=== PATIENT | female | born 1965 | race American Indian/Alaskan Native ===

== ENCOUNTER 2018-02-20 08:38 | Outpatient (CLI) | payer BC ==
--- NOTE | 2018-02-20 11:27 | Mammography Report ---
Screening mammogram: Routine views are obtained and compared to prior exam in January 2012. In the upper outer left breast there is an asymmetry containing a biopsy marker. It is generally smaller in size on the current examination. There is a minimally lobulated nodule in the right axilla which has remained stable. The overall breast pattern otherwise is generally fatty replaced, symmetric, and unremarkable. CAD used. Impression: Stable exam. Recommendation: Annual mammogram followup. BI-RADS CATEGORY: 1 = Negative ACR BI-RADS MAMMOGRAPHIC CODES: 0 = Needs additional imaging evaluation; 1 = Negative; 2 = Benign; 3 = Probably benign; 4 = Suspicious; 5 = Malignant; 6 = Known biopsy-proven malignancy COMMENT: 1. Dense breast tissue, i.e., adenosis, fibrocystic changes, etc., may obscure an underlying neoplasm. 2. Approximately 10% of cancers are not detected with mammography. 3. A negative mammography report should not delay biopsy if a clinically suspicious mass is present.
== END 2018-02-20 08:39 | disposition home or self-care (01) ==
LOC: MAMMO 08:38
PROVIDERS: ATTEND Internal Medicine
DX: Z12.31 Encounter for screening mammogram for malignant neoplasm of breast (principal); I10 Essential (primary) hypertension; J44.9 Chronic obstructive pulmonary disease, unspecified; G47.30 Sleep apnea, unspecified; K21.9 Gastro-esophageal reflux disease without esophagitis; E03.9 Hypothyroidism, unspecified; Z98.890 Other specified postprocedural states; Z82.49 Family history of ischemic heart disease and other diseases of the circulatory system
CPT/HCPCS: 77067

== ENCOUNTER 2018-10-23 13:04 | Outpatient (CLI) | payer BC ==
[2018-10-23 13:50] LABS: Hematocrit 39.2 % (30.3-42.9); Hemoglobin 13.1 gm/dl (10.1-14.3); Mean Corpuscular HGB Conc 33 % (30-34); Mean Corpuscular Volume 90 fl (79-97); Platelet Count 248 K/mm3 (140-440); Red Blood Count 4.38 M/mm3 (3.65-5.03); Red Cell Distribution Width 13.6 % (13.2-15.2)
[2018-10-23 14:23] LABS: Alanine Aminotransferase 15 units/L (7-56); Albumin 4.3 g/dL (3.9-5); BUN/Creatinine Ratio 22; Blood Urea Nitrogen 11 mg/dL (7-17); Calcium 9.9 mg/dL (8.4-10.2); Chol/HDL Ratio 2.42 %; HDL Cholesterol 96 mg/dL (40-59); Hemolysis Index 4; LDL Cholesterol,Direct 140 mg/dL (50-130)
== END 2018-10-23 13:05 | disposition home or self-care (01) ==
LOC: LAB 13:04
PROVIDERS: ATTEND Internal Medicine
DX: E03.9 Hypothyroidism, unspecified (principal); I10 Essential (primary) hypertension; E66.01 Morbid (severe) obesity due to excess calories; K21.9 Gastro-esophageal reflux disease without esophagitis; J44.9 Chronic obstructive pulmonary disease, unspecified; Z90.710 Acquired absence of both cervix and uterus; Z90.49 Acquired absence of other specified parts of digestive tract
CPT/HCPCS: 36415; 80053; 80061; 82306; 82607; 84425; 84443; 85027

== ENCOUNTER 2019-04-26 10:38 | Outpatient (CLI) | payer BC ==
[2019-04-26 11:10] LABS: Hematocrit 36.7 % (30.3-42.9); Hemoglobin 12.2 gm/dl (10.1-14.3); Mean Corpuscular HGB Conc 33 % (30-34); Mean Corpuscular Volume 89 fl (79-97); Platelet Count 218 K/mm3 (140-440); Red Blood Count 4.12 M/mm3 (3.65-5.03); Red Cell Distribution Width 13.5 % (13.2-15.2)
[2019-04-26 11:27] LABS: Alanine Aminotransferase 12 units/L (7-56); Albumin 4.2 g/dL (3.9-5); BUN/Creatinine Ratio 23; Blood Urea Nitrogen 14 mg/dL (7-17); Calcium 9.5 mg/dL (8.4-10.2); HDL Cholesterol 100 mg/dL (40-59); Hemolysis Index 2; LDL Cholesterol,Direct 146 mg/dL (50-130)
[2019-04-26 11:48] LABS: Free T4 (Free Thyroxine) 1.32 ng/dL (0.76-1.46)
== END 2019-04-26 10:39 | disposition home or self-care (01) ==
LOC: LAB 10:38
PROVIDERS: ATTEND Internal Medicine
DX: E03.9 Hypothyroidism, unspecified (principal); I10 Essential (primary) hypertension; J44.9 Chronic obstructive pulmonary disease, unspecified; E66.01 Morbid (severe) obesity due to excess calories; K21.9 Gastro-esophageal reflux disease without esophagitis; Z90.49 Acquired absence of other specified parts of digestive tract; Z90.710 Acquired absence of both cervix and uterus; Z86.2 Personal history of diseases of the blood and blood-forming organs and certain disorders involving the immune mechanism
CPT/HCPCS: 36415; 80053; 80061; 82607; 82652; 82747; 83036; 84439; 84443; 85027

== ENCOUNTER 2019-07-18 14:05 | Outpatient (CLI) | payer BC ==
--- NOTE | 2019-07-19 11:30 | Mammography Report ---
DIGITAL SCREENING MAMMOGRAM WITH CAD, 07/18/2019 INDICATION: Routine screening mammography. TECHNIQUE: Digital bilateral 2D mammography was obtained in the craniocaudal and mediolateral obliq ue projections. This examination was interpreted with the benefit of Computer-Aided Detection analysi s. COMPARISON: 02/20/2018 and 01/25/2012 FINDINGS: Breast Density: The breasts are heterogeneously dense, which may obscure small masses. A right asymmetry on the MLO view requires additional imaging. No architectural distortion or suspici ous calcifications of the right breast. There is no evidence of new mass, suspicious calcifications o r architectural distortion in the left breast. Stable oval partially circumscribed left outer mixed d ensity mass with a biopsy clip. It has a fatty component. IMPRESSION: Right asymmetry requiring additional imaging. Recommend recall for right lateral and spot magnification MLO views and right breast ultrasound if needed. Follow up recommendation: Routine yearly Category 0: Incomplete. Needs additional imaging evaluation and/or prior mammograms for comparison. A "normal" or negative report should not discourage follow up or biopsy of a clinically significant f inding. A written summary of these findings will be mailed to the patient. The patient will be entered into a mammography reporting system which will generate a reminder letter for the patient's next appointmen t at the appropriate interval. The [employer] recommends yearly mammograms starting at age 40 and continuing as l karlene as a woman is in good health. Breast MRI is recommended for women with an approximate 20-25% or greater lifetime risk of breast cancer, including women with a strong family history of breast or ova leticia cancer or who have been treated for Hodgkin's disease. Signer Name: Mirza Geronimo MD Signed: 07/19/2019 11:25 AM Workstation Name: [id number]
== END 2019-07-18 14:06 | disposition home or self-care (01) ==
LOC: MAMMO 14:05
PROVIDERS: ATTEND Internal Medicine
DX: Z12.31 Encounter for screening mammogram for malignant neoplasm of breast (principal); I10 Essential (primary) hypertension; J44.9 Chronic obstructive pulmonary disease, unspecified; K21.9 Gastro-esophageal reflux disease without esophagitis; Z90.49 Acquired absence of other specified parts of digestive tract; Z98.51 Tubal ligation status; E03.9 Hypothyroidism, unspecified; Z98.890 Other specified postprocedural states; E89.0 Postprocedural hypothyroidism; Z85.850 Personal history of malignant neoplasm of thyroid
CPT/HCPCS: 77067

== ENCOUNTER 2020-04-02 11:42 | Outpatient (CLI) | payer BC ==
--- NOTE | 2020-04-02 15:05 | XRay Report ---
CERVICAL SPINE 3 VIEWS INDICATION: LOWER BACK PAIN. COMPARISON: None. IMPRESSION: There is reversal of the normal cervical lordosis. Mild to moderate degenerative disc d isease is identified at C4-5, C5-5-6 and C6-7. The facet joints are unremarkable. No acute osseous o r soft tissue abnormality. THORACIC SPINE 2 VIEWS INDICATION: LOWER BACK PAIN. COMPARISON: None. IMPRESSION: Normal alignment. Mild multilevel degenerative disc disease is noted. No acute osseous or soft tissue abnormality. LUMBAR SPINE 3 VIEWS INDICATION: LOWER BACK PAIN. COMPARISON: None. IMPRESSION: There is 3 mm anterolisthesis of L4 with respect to L5 which appears to be secondary to degenerative facet arthropathy. The remaining lumbar vertebra are normal alignment. Mild disc space narrowing at L4-5 and L5-S1. Moderate facet arthropathy at L3-4, L4-5 and L5-S1. The sacrum and SI emy ints are unremarkable. No acute osseous or soft tissue abnormality. Signer Name: Denny Marvin Jr, MD Signed: 04/02/2020 3:01 PM Workstation Name: [id number]
== END 2020-04-02 11:43 | disposition home or self-care (01) ==
LOC: XRAY 11:42
PROVIDERS: ATTEND Chiropractor
DX: M50.321 Other cervical disc degeneration at C4-C5 level (principal)
CPT/HCPCS: 72040; 72070; 72100

== ENCOUNTER 2020-06-25 08:20 | Outpatient (CLI) | payer BC ==
[2020-06-25 08:42] LABS: Hematocrit 34.8 % (30.3-42.9); Hemoglobin 11.6 gm/dl (10.1-14.3); Mean Corpuscular HGB Conc 33 % (30-34); Mean Corpuscular Volume 91 fl (79-97); Platelet Count 222 K/mm3 (140-440); Red Blood Count 3.85 M/mm3 (3.65-5.03); Red Cell Distribution Width 14.1 % (13.2-15.2)
[2020-06-25 09:16] LABS: Alanine Aminotransferase 11 units/L (7-56); Albumin 4.1 g/dL (3.9-5); Blood Urea Nitrogen 16 mg/dL (7-17); Calcium 9.6 mg/dL (8.4-10.2); Chol/HDL Ratio 2.46 %; HDL Cholesterol 93 mg/dL (40-59); Hemolysis Index 2; LDL Cholesterol,Direct 138 mg/dL (50-130)
[2020-06-25 09:17] LABS: BUN/Creatinine Ratio 27
[2020-06-28 14:09] LABS: Vitamin D, 25-OH, D2 <4 ng/mL
== END 2020-06-25 08:21 | disposition home or self-care (01) ==
LOC: LAB 08:20
PROVIDERS: ATTEND Internal Medicine
DX: Z00.00 Encounter for general adult medical examination without abnormal findings (principal)
CPT/HCPCS: 36415; 80053; 80061; 82306; 83036; 84443; 85027

== ENCOUNTER 2020-08-22 12:50 | Outpatient (CLI) | payer BC ==
--- NOTE | 2020-08-22 13:36 | Mammography Report ---
DIGITAL DIAGNOSTIC MAMMOGRAM WITH CAD CONVENTIONAL, 08/22/2020 CLINICAL INFORMATION / INDICATION: ABN MAMMO TECHNIQUE: Digital bilateral mammographic imaging was performed. This examination was interpreted with the benefit of Computer-aided Detection analysis. COMPARISON: 01/25/2012 through 07/18/2019. FINDINGS: Breast Density: There are scattered areas of fibroglandular density. No dominant mass, suspicious calcifications or architectural distortion in either breast. Benign-appearing nodularity bilaterally, more prominent on the left than the right, is again identifi ed. A biopsy clip in the left upper outer quadrant is again noted. A small focal asymmetry in the rig ht inferior breast seen on last years MLO view is no longer present. No new abnormality is seen. IMPRESSION: No mammographic evidence of malignancy. Follow up recommendation: Routine yearly BI-RADS Category 2: Benign. A "normal" or negative report should not discourage follow up or biopsy of a clinically significant f inding. A written summary of these findings will be mailed to the patient. The patient will be entered into a mammography reporting system which will generate a reminder letter for the patient's next appointmen t at the appropriate interval. According to the [employer], yearly mammograms are recommended starting at age 40 and continuing as long as a woman is in good health. Breast MRI is recommended for women with an gayla roximately 20-25% or greater lifetime risk of breast cancer, including women with a strong family his tory of breast or ovarian cancer and women who have been treated for Hodgkin's disease. Signer Name: Kashmir Saba MD Signed: 08/22/2020 1:31 PM Workstation Name: [id number]
== END 2020-08-22 12:51 | disposition home or self-care (01) ==
LOC: MAMMO 12:50
PROVIDERS: ATTEND Internal Medicine
DX: R92.8 Other abnormal and inconclusive findings on diagnostic imaging of breast (principal)
CPT/HCPCS: 77066

== ENCOUNTER 2020-08-26 08:59 | Day surgery (SDC) | payer BC ==
[~2020-08-26 08:59] MED LIST: SODIUM CHLORIDE 0.9% 1000 ML 1,000 ML IV SCH
--- NOTE | 2020-08-26 10:06 | Anesthesia Consultation ---
Anesthesia Consult and Med Hx Date of service: 08/26/20 - Airway Anesthetic Teeth Evaluation: Good ROM Head & Neck: Adequate Mental/Hyoid Distance: Adequate Mallampati Class: Class II Intubation Access Assessment: Probably Good - Pre-Operative Health Status ASA Pre-Surgery Classification: ASA3 Proposed Anesthetic Plan: MAC - Pulmonary Hx Smoking: No Hx Asthma: Yes SOB: Yes COPD: Yes Hx Pneumonia: No Hx Sleep Apnea: Yes - Cardiovascular System Hx Hypertension: Yes Hx Heart Murmur: No - Central Nervous System Hx Seizures: No Hx Psychiatric Problems: No - Gastrointestinal Hx Gastroesophageal Reflux Disease: Yes (SEVERE, ON DEXILANT) - Endocrine Hx Renal Disease: No Hx End Stage Renal Disease: No Hx Thyroid Disease: Yes Hx Hypothyroidism: Yes - Hematic Hx Anemia: Yes - Other Systems Hx Alcohol Use: Yes (occasionally) Hx Cancer: Yes (CA) Hx Obesity: Yes (BMI 39.3, s/p gastric sleeve 2017)
--- NOTE | 2020-08-26 10:07 | Anesthesia Day of Surgery ---
Anesthesia Day of Surgery - Day of Surgery Patient Examined: Yes Patient H&P Reviewed: Yes Patient is NPO: Yes
[2020-08-26] MEDS ORDERED: LIDOCAINE MPF (2%) 20 MG/1 ML VIAL 5 ML ONE (11:01)
[2020-08-26] MEDS ORDERED: propofoL 200 MG/20 ML VIAL IV ONE ×2 (11:01→11:09)
--- NOTE | 2020-08-26 11:25 | Short Stay Summary ---
Short Stay Documentation Date of service: 08/26/20 - History H&P: obtained from office - Allergies and Medications Current Medications: Allergies penicillin G Allergy (Verified 07/05/13 14:17) Rash HIVES Home Medications Medication Instructions Recorded Confirmed Last Taken Type Fluticasone Propionate [Flonase] 16 gm NS DAILY PRN 05/25/13 05/25/13 07/16/13 History Iron &Iron Asp Gly/FA/Mv,Min27 1 each PO DAILY 05/25/13 05/25/13 07/16/13 History [Corvite Fe Tablet] Levothyroxine Sodium [Synthroid] 250 mcg PO DAILY 05/25/13 05/25/13 07/16/13 History Triamter/Hctz 37.5-25 mg 1 tab PO QDAY 05/25/13 05/25/13 07/17/13 History [Maxzide-25] Cholecalciferol (Vitamin D3) 1,000 unit PO DAILY 05/29/13 05/29/13 07/16/13 History [Vitamin D] Dexilene 1 tab PO DAILY 05/29/13 05/29/13 07/17/13 History Levalbuterol [Xopenex] 2 puff INHALATION PRN 07/05/13 07/05/13 07/17/13 History Fluticasone/Salmeterol [Advair 1 puff IH BID #30 disk.w.dev 07/18/13 Unknown Rx Diskus 500-50 mcg] Active Medications Sodium Chloride (Nacl 0.9% 1000 Ml) 1,000 mls @ 50 mls/hr IV DIRECT LIZZIE - Brief post op/procedure progress note Date of procedure: 08/26/20 Pre-op diagnosis: Screening Post-op diagnosis: other (Diverticulosis) Procedure: Colonoscopy Anesthesia: MAC Findings: 1. Moderate sigmoid diverticulosis 2. Moderate external hemorrhoids 3. Otherwise normal colonoscopy Surgeon: XIMENA WALTER Estimated blood loss: none Pathology: none Condition: stable - Disposition Condition at discharge: Good Disposition: DC-01 TO HOME OR SELFCARE Short Stay Discharge Plan Follow up with: FARRAH PATEL MD [Primary Care Provider] - 7 Days
--- NOTE | 2020-08-26 11:37 | Operative Report ---
PROCEDURE: Colonoscopy. PREOPERATIVE DIAGNOSIS: Screening. POSTOPERATIVE DIAGNOSIS: Sigmoid diverticulosis. SEDATION: MAC by Anesthesia. HISTORY: The patient is a 54-year-old woman who presents for screening colonoscopy. DESCRIPTION OF PROCEDURE: Indications, risks, and benefits were explained and consent was obtained. The patient was placed in left lateral decubitus position and sedated. Video colonoscope was passed through the rectum after digital examination and passed with minimal difficulty to the cecum, which was identified by the ileocecal valve and the appendiceal orifice. Scope was then gradually withdrawn with close inspection of the mucosa. Prep was good. FINDINGS: 1. Moderate sigmoid diverticulosis. 2. Remainder of visualized colonic mucosa is normal appearing with no evidence of mass lesions, vascular lesions or inflammation. 3. Moderate external hemorrhoids on retroflexion. The patient tolerated the procedure well without immediate complication. IMPRESSION: 1. Diverticulosis. 2. Otherwise, normal colonoscopy. PLAN: 1. High-fiber diet. 2. Repeat colonoscopy for screening purposes in 10 years. JOB# [id number] HRC/NTS
[2020-08-26 12:26] VITALS: BP 154/97
--- NOTE | 2020-08-26 18:39 | Post Anesthesia Evaluation ---
- Post Anesthesia Evaluation Patient Participated: Yes Airway Patent: Yes Stable Respiratory Function: Yes Nausea/Vomiting: No Temp > 96.8F: Yes Pain Manageable: Yes Adequeate Hydration: Yes Anesthesia Complications: No Block Receding Appropriately: Not Applicable Patient on Ventilator: No
== END 2020-08-26 12:15 | disposition home or self-care (01) ==
LOC: GIO 08:59
PROVIDERS: ATTEND Internal Medicine Gastroenterology
DX: Z12.11 Encounter for screening for malignant neoplasm of colon (principal); K57.30 Diverticulosis of large intestine without perforation or abscess without bleeding; K64.8 Other hemorrhoids; E66.01 Morbid (severe) obesity due to excess calories; E03.9 Hypothyroidism, unspecified; K21.9 Gastro-esophageal reflux disease without esophagitis; I10 Essential (primary) hypertension; J44.9 Chronic obstructive pulmonary disease, unspecified; G47.30 Sleep apnea, unspecified; Z98.890 Other specified postprocedural states; Z90.49 Acquired absence of other specified parts of digestive tract; Z90.710 Acquired absence of both cervix and uterus; Z83.3 Family history of diabetes mellitus; Z88.0 Allergy status to penicillin; Z68.39 Body mass index [BMI] 39.0-39.9, adult; Z98.51 Tubal ligation status; Z98.891 History of uterine scar from previous surgery; Z85.850 Personal history of malignant neoplasm of thyroid; Z72.89 Other problems related to lifestyle; Z82.5 Family history of asthma and other chronic lower respiratory diseases; Z82.61 Family history of arthritis; Z82.49 Family history of ischemic heart disease and other diseases of the circulatory system
CPT/HCPCS: 45378; J2704; J7030

== ENCOUNTER 2021-03-25 09:34 | Outpatient (CLI) | payer BC ==
[2021-03-25 10:24] LABS: Eosinophils # (Auto) 0.1 K/mm3 (0.0-0.4); Eosinophils % (Auto) 1.1 % (0.0-4.3); Hematocrit 35.2 % (30.3-42.9); Hemoglobin 11.8 gm/dl (10.1-14.3); Lymphocytes # (Auto) 2.2 K/mm3 (1.2-5.4); Lymphocytes % (Auto) 44.7 % (13.4-35.0); Mean Corpuscular HGB Conc 33 % (30-34); Mean Corpuscular Volume 90 fl (79-97); Monocytes % (Auto) 6.8 % (0.0-7.3); Platelet Count 222 K/mm3 (140-440); Red Blood Count 3.92 M/mm3 (3.65-5.03); Red Cell Distribution Width 14.1 % (13.2-15.2)
[2021-03-25 10:25] LABS: Alanine Aminotransferase 19 units/L (7-56); Albumin 3.9 g/dL (3.9-5); Blood Urea Nitrogen 12 mg/dL (7-17); Calcium 9.4 mg/dL (8.4-10.2); Hemolysis Index 6
[2021-03-25 10:36] LABS: Free T4 (Free Thyroxine) 1.65 ng/dL (0.76-1.46)
[2021-03-25 10:37] LABS: BUN/Creatinine Ratio 24
[2021-03-25 16:53] LABS: Chol/HDL Ratio 2.33 %
[2021-03-29 09:09] LABS: Vitamin D, 25-OH, D2 <4 ng/mL
== END 2021-03-25 09:35 | disposition home or self-care (01) ==
LOC: LAB 09:34
PROVIDERS: ATTEND Specialist
DX: C73 Malignant neoplasm of thyroid gland (principal); E16.2 Hypoglycemia, unspecified; I10 Essential (primary) hypertension; D64.9 Anemia, unspecified
CPT/HCPCS: 36415; 80053; 80061; 82306; 83036; 84439; 84443; 85025

== ENCOUNTER 2021-07-21 14:49 | Outpatient (CLI) | payer BC ==
--- NOTE | 2021-07-21 15:55 | XRay Report ---
CHEST 2 VIEWS INDICATION / CLINICAL INFORMATION: SOB,HX OF ASTHMA. COMPARISON: 08/16/2018 FINDINGS: SUPPORT DEVICES: None. HEART / MEDIASTINUM: No significant abnormality. LUNGS / PLEURA: No significant pulmonary or pleural abnormality. No pneumothorax. ADDITIONAL FINDINGS: No significant additional findings. IMPRESSION: 1. No acute findings. Signer Name: Travis Plascencia DO Signed: 07/21/2021 3:50 PM Workstation Name: [employer] [id number]
== END 2021-07-21 14:50 | disposition home or self-care (01) ==
LOC: XRAY 14:49
PROVIDERS: ATTEND Specialist
DX: R06.02 Shortness of breath (principal); Z87.09 Personal history of other diseases of the respiratory system
CPT/HCPCS: 71046

== ENCOUNTER 2021-07-31 11:04 | Outpatient (CLI) | payer BC ==
[2021-07-31 11:50] LABS: Hemoglobin 12.2 gm/dl (10.1-14.3); Mean Corpuscular HGB Conc 32 % (30-34); Mean Corpuscular Volume 90 fl (79-97); Platelet Count 233 K/mm3 (140-440); Red Blood Count 4.23 M/mm3 (3.65-5.03); Red Cell Distribution Width 13.3 % (13.2-15.2)
[2021-07-31 13:50] LABS: Alanine Aminotransferase 16 units/L (7-56); Albumin 4.2 g/dL (3.9-5); Blood Urea Nitrogen 12 mg/dL (7-17); Calcium 9.3 mg/dL (8.4-10.2); Chol/HDL Ratio 2.59 %; HDL Cholesterol 96 mg/dL (40-59); Hemolysis Index 4; LDL Cholesterol,Direct 137 mg/dL (50-130)
[2021-07-31 13:51] LABS: BUN/Creatinine Ratio 20
[2021-07-31 14:04] LABS: Total Cells Counted 100
[2021-07-31 14:05] LABS: Platelet Estimate Consistent w Auto; RBC Morphology Normal
== END 2021-07-31 11:05 | disposition home or self-care (01) ==
LOC: LAB 11:04
PROVIDERS: ATTEND Internal Medicine
DX: Z00.00 Encounter for general adult medical examination without abnormal findings (principal)
CPT/HCPCS: 36415; 80053; 80061; 82306; 83036; 84439; 84443; 85007; 85025

== ENCOUNTER 2022-03-26 09:31 | Outpatient (CLI) | payer BC ==
[2022-03-26 09:55] LABS: Hematocrit 35.9 % (30.3-42.9); Hemoglobin 12.2 gm/dl (10.1-14.3); Mean Corpuscular HGB Conc 34 % (30-34); Mean Corpuscular Volume 90 fl (79-97); Platelet Count 220 K/mm3 (140-440); Red Blood Count 3.97 M/mm3 (3.65-5.03); Red Cell Distribution Width 13.7 % (13.2-15.2)
[2022-03-26 10:19] LABS: Alanine Aminotransferase 14 units/L (7-56); Albumin 4.1 g/dL (3.9-5); Blood Urea Nitrogen 12 mg/dL (7-17); Calcium 9.5 mg/dL (8.4-10.2); HDL Cholesterol 94 mg/dL (40-59); Hemolysis Index 5; LDL Cholesterol,Direct 157 mg/dL (50-130)
[2022-03-26 10:25] LABS: BUN/Creatinine Ratio 20
[2022-03-26 15:31] LABS: Microalbumin/Creatinine Ratio 9.5 ug/mg
== END 2022-03-26 09:32 | disposition home or self-care (01) ==
LOC: LAB 09:31
PROVIDERS: ATTEND Internal Medicine
DX: R73.03 Prediabetes (principal); I10 Essential (primary) hypertension; E03.9 Hypothyroidism, unspecified; E78.5 Hyperlipidemia, unspecified
CPT/HCPCS: 36415; 80053; 80061; 82043; 83036; 84443; 85027

== ENCOUNTER 2022-06-08 14:45 | Outpatient (CLI) | payer BC | END 2022-06-08 14:46 | disposition home or self-care (01) | LOC: SPVWC 14:45 | PROVIDERS: ATTEND Internal Medicine | DX: Z12.31 Encounter for screening mammogram for malignant neoplasm of breast (principal) | CPT/HCPCS: 77063; 77067 ==